=== PATIENT | female | born 1995 | race Caucasian/White ===

== ENCOUNTER 2019-08-19 10:45 | Emergency (ER) | payer MEDICAID, OTHER ==
--- NOTE | 2019-08-19 10:48 | ERPHSYRPT ---
- History of Present Illness Time Seen by Provider: 08/19/19 10:48 Historian: patient, family Exam Limitations: no limitations Physician History: This is a 23-year-old white female who presents with a 2-day history of right suprapubic pain that is described as intermittent ache and sharp stabbing pain. She has no associated nausea vomiting or diarrhea. She states that she has felt a little sleepy. She states that she has at times felt flushed and feels as though she is having hot flashes. She is never had anything like this before. This week is when she is due for her menstrual period to start. She has had no abdominal surgeries. She has had no vaginal discharge. She denies flank pain. Timing/Duration: day(s) Activities at Onset: none Quality: aching, sharpness Abdominal Pain Onset Location: suprapubic (Right side) Pain Radiation: no radiation Severity of Pain-Max: moderate Severity of Pain-Current: moderate Modifying Factors: Improves With: nothing Associated Symptoms: denies symptoms Previous symptoms: no prior history Allergies/Adverse Reactions: Penicillins Allergy (Verified 06/22/15 15:35) Hx Influenza Vaccination/Date Given: Yes Hx Pneumococcal Vaccination/Date Given: No Travel Risk - International Travel Have you traveled outside of the country in past 3 weeks: No - Coronavirus Screening Are you exhibiting any of the following symptoms?: No Close contact with a COVID-19 positive Pt in past 14-21 Days: No - Review of Systems Constitutional: No Symptoms Eyes: No Symptoms Ears, Nose, & Throat: No Symptoms Respiratory: No Symptoms Cardiac: No Symptoms Abdominal/Gastrointestinal: Abdominal Pain (Right suprapubic), No Nausea, No Vomiting, No Diarrhea Genitourinary Symptoms: No Symptoms Musculoskeletal: No Symptoms Skin: No Symptoms Neurological: No Symptoms Psychological: No Symptoms Endocrine: No Symptoms Hematologic/Lymphatic: No Symptoms Immunological/Allergic: No Symptoms All Other Systems: Reviewed and Negative - Past Medical History Pertinent Past Medical History: No Neurological History: No Pertinent History Cardiac History: No Pertinent History Respiratory History: Asthma Endocrine Medical History: No Pertinent History Musculoskeletal History: No Pertinent History GI Medical History: No Pertinent History History: No Pertinent History Psycho-Social History: No Pertinent History Female Reproductive Disorders: No Pertinent History - Past Surgical History Past Surgical History: No Neuro Surgical History: No Pertinent History Cardiac: No Pertinent History Respiratory: No Pertinent History Gastrointestinal: No Pertinent History Genitourinary: No Pertinent History Musculoskeletal: No Pertinent History Female Surgical History: No Pertinent History - Social History Smoking Status: Never smoker Exposure to second hand smoke: Yes Drug Use: none Patient Lives Alone: No - Nursing Vital Signs Nursing Vital Signs: Initial Vital Signs Temperature 98.0 F 08/19/19 10:52 Pulse Rate 112 H 08/19/19 10:52 Respiratory Rate 20 08/19/19 10:52 Blood Pressure 161/98 08/19/19 10:52 O2 Sat by Pulse Oximetry 99 08/19/19 10:52 Pain Scale Pain Intensity 2 - Physical Exam General Appearance: no apparent distress, alert, anxiety Eye Exam: PERRL/EOMI, eyes nml inspection Ears, Nose, Throat Exam: normal ENT inspection, moist mucous membranes Neck Exam: normal inspection, non-tender, supple, full range of motion Respiratory Exam: normal breath sounds, lungs clear, airway intact, No chest tenderness, No respiratory distress Cardiovascular Exam: normal heart sounds, normal peripheral pulses, tachycardia Gastrointestinal/Abdomen Exam: soft, normal bowel sounds, tenderness, guarding (Right suprapubic) Pelvic Exam: not done Rectal Exam: not done Back Exam: normal inspection, normal range of motion, No CVA tenderness Extremity Exam: normal inspection, normal range of motion, pelvis stable Neurologic Exam: alert, oriented x 3, cooperative, 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, nml cerebellar function, nml station & gait Skin Exam: normal color, warm, dry Lymphatic Exam: No adenopathy SpO2 Interpretation: normal O2 Delivery: Room Air - Course Nursing assessment & vital signs reviewed: Yes Ordered Tests: Active Orders 24 hr Category Date Time Status IV Insertion STAT Care 08/19/19 11:08 Active ABDOMEN AND PELVIS W/0 CONTRAS [CT] Stat Exams 08/19/19 11:09 Completed PELVIS TRANS VAGINAL [US] Stat Exams 08/19/19 12:24 Completed AMYLASE Stat Lab 08/19/19 11:05 Completed CBC W DIFF Stat Lab 08/19/19 11:05 Completed CMP Stat Lab 08/19/19 11:05 Completed CULTURE,URINE Stat Lab 08/19/19 12:13 Received HCG QUALITATIVE,SERUM Stat Lab 08/19/19 11:05 Completed LIPASE Stat Lab 08/19/19 11:05 Completed Lactic Acid Stat Lab 08/19/19 11:24 Completed Manual Differential NC Stat Lab 08/19/19 11:05 Completed UA W/RFX UR CULTURE Stat Lab 08/19/19 12:13 Completed Medication Summary Discontinued Medications Generic Name Dose Route Start Last Admin Trade Name Nicolas PRN Reason Stop Dose Admin Ketorolac Tromethamine 30 mg 08/19/19 11:08 08/19/19 11:25 Toradol 30 Mg Injection IV 08/19/19 11:09 30 mg STAT ONE Administration Ketorolac Tromethamine Confirm 08/19/19 11:23 Toradol 30 Mg Injection Administered 08/19/19 11:24 Dose 30 mg .ROUTE .STK-MED ONE Levofloxacin 500 mg 08/19/19 13:41 08/19/19 13:46 Levofloxacin 250mg Tablet PO 08/19/19 13:42 500 mg STAT ONE Administration Levofloxacin Confirm 08/19/19 13:43 Levofloxacin 500 Mg Tablet Administered 08/19/19 13:44 Dose 500 mg .ROUTE .STK-MED ONE Ondansetron HCl 4 mg 08/19/19 11:08 08/19/19 11:25 Zofran 4 Mg/2 Ml Vial IV 08/19/19 11:09 4 mg STAT ONE Administration Ondansetron HCl Confirm 08/19/19 11:23 Zofran 4 Mg/2 Ml Vial Administered 08/19/19 11:24 Dose 4 mg .ROUTE .STK-MED ONE Lab/Rad Data: Laboratory Result Diagrams 08/19/19 11:05 08/19/19 11:05 Laboratory Results 08/19/19 08/19/19 08/19/19 Range/Units 12:13 11:24 11:05 WBC (4.0-10.5) K/mm3 RBC (4.1-5.4) M/mm3 Hgb (12.0-16.0) gm/dl Hct (35-47) % MCV (78-100) fl MCH (26-32) pg MCHC (32-36) g/dl RDW (11.5-14.0) % Plt Count (150-450) K/mm3 MPV (7.5-11.0) fl Sodium (137-145) mmol/L Potassium (3.5-5.1) mmol/L Chloride (98-107) mmol/L Carbon Dioxide (22-30) mmol/L Anion Gap (5-15) MEQ/L BUN (7-17) mg/dL Creatinine (0.52-1.04) mg/dL Estimated GFR ML/MIN Glucose (74-106) mg/dL Lactic Acid 1.1 (0.4-2.0) Calcium (8.4-10.2) mg/dL Total Bilirubin (0.2-1.3) mg/dL AST (14-36) U/L ALT (0-35) U/L Alkaline Phosphatase (38-126) U/L Serum Total Protein (6.3-8.2) g/dL Albumin (3.5-5.0) g/dL Amylase (30-110) U/L Lipase (23-300) U/L Serum , Qual NEGATIVE (Negative) Urine Color YELLOW (YELLOW) Urine Appearance SLIGHTLY CLOUDY (CLEAR) Urine pH 6.0 (5-6) Ur Specific [place] 1.015 (1.005-1.025) Urine Protein NEGATIVE (Negative) Urine Ketones MODERATE (NEGATIVE) Urine Blood MODERATE (0-5) Tomy/ul Urine Nitrite NEGATIVE (NEGATIVE) Urine Bilirubin NEGATIVE (NEGATIVE) Urine Urobilinogen NEGATIVE (0-1) mg/dL Ur Leukocyte Esterase LARGE (NEGATIVE) Urine WBC (Auto) 26-50 (0-5) /HPF Urine RBC (Auto) 6-10 (0-2) /HPF U Epithel Cells (Auto) FEW (FEW) /HPF Urine Bacteria (Auto) FEW (NEGATIVE) /HPF Urine Mucus (Auto) SLIGHT (NEGATIVE) /HPF Urine Culture Reflexed YES (NO) Urine Glucose NEGATIVE (NEGATIVE) mg/dL 08/19/19 08/19/19 Range/Units 11:05 11:05 WBC 12.6 H (4.0-10.5) K/mm3 RBC 4.69 (4.1-5.4) M/mm3 Hgb 12.3 (12.0-16.0) gm/dl Hct 37.8 (35-47) % MCV 80.6 (78-100) fl MCH 26.2 (26-32) pg MCHC 32.5 (32-36) g/dl RDW 13.9 (11.5-14.0) % Plt Count 406 (150-450) K/mm3 MPV 8.8 (7.5-11.0) fl Sodium 139 (137-145) mmol/L Potassium 3.6 (3.5-5.1) mmol/L Chloride 104 (98-107) mmol/L Carbon Dioxide 26 (22-30) mmol/L Anion Gap 13.2 (5-15) MEQ/L BUN 11 (7-17) mg/dL Creatinine 0.57 (0.52-1.04) mg/dL Estimated GFR > 60.0 ML/MIN Glucose 131 H (74-106) mg/dL Lactic Acid (0.4-2.0) Calcium 9.4 (8.4-10.2) mg/dL Total Bilirubin 0.60 (0.2-1.3) mg/dL AST 15 (14-36) U/L ALT 13 (0-35) U/L Alkaline Phosphatase 74 (38-126) U/L Serum Total Protein 8.6 H (6.3-8.2) g/dL Albumin 4.1 (3.5-5.0) g/dL Amylase 32 (30-110) U/L Lipase 24 (23-300) U/L Serum , Qual (Negative) Urine Color (YELLOW) Urine Appearance (CLEAR) Urine pH (5-6) Ur Specific [place] (1.005-1.025) Urine Protein (Negative) Urine Ketones (NEGATIVE) Urine Blood (0-5) Tomy/ul Urine Nitrite (NEGATIVE) Urine Bilirubin (NEGATIVE) Urine Urobilinogen (0-1) mg/dL Ur Leukocyte Esterase (NEGATIVE) Urine WBC (Auto) (0-5) /HPF Urine RBC (Auto) (0-2) /HPF U Epithel Cells (Auto) (FEW) /HPF Urine Bacteria (Auto) (NEGATIVE) /HPF Urine Mucus (Auto) (NEGATIVE) /HPF Urine Culture Reflexed (NO) Urine Glucose (NEGATIVE) mg/dL - Progress Progress: improved, pain not gone completely Progress Note: 08/19/19 12:21 CAT scan of the abdomen and pelvis shows a right adnexal 4 to 5 cm hypodense mass 08/19/19 13:47 Ultrasound pelvic/transvaginal reveals a large right ovarian cystic mass with presumed adnexal fluid leakage. Counseled pt/family regarding: lab results, diagnosis, need for follow-up, rad results - Departure Departure Disposition: Home Clinical Impression: Urinary tract infection, Ovarian cystic mass Condition: Stable Critical Care Time: No Referrals: BLU CAGE NP [Primary Care Provider] - Additional Instructions: Add ibuprofen 600 mg orally every 8 hours with food as needed for pain. Follow- up with a indigo mixer for further management. Prescriptions: Hydrocodone/APAP 5-325 Tab^^^ [[place] 5-325 Tablet^^^] 1 tab PO Q8HPRN PRN #8 tablet MDD 3 PRN Reason: Pain Ciprofloxacin [Cipro 500 MG] 500 mg PO BID #14 tablet
[2019-08-19] MEDS ORDERED: Zofran 4 MG/2 ML VIAL IV ONE (11:08)
[2019-08-19] MEDS ORDERED: TORAdol 30 mg Injection IV ONE (11:08)
[2019-08-19] MEDS ORDERED: Zofran 4 MG/2 ML VIAL ONE (11:23)
[2019-08-19] MEDS ORDERED: TORAdol 30 mg Injection ONE (11:23)
[2019-08-19 11:28] LABS: Hematocrit 37.8 % (35-47); Hemoglobin 12.3 gm/dl (12.0-16.0); Mean Cell Volume 80.6 fl (78-100); Mean Corpuscular Hemoglobin 26.2 pg (26-32); Mean Corpuscular Hgb Concent. 32.5 g/dl (32-36); Mean Platelet Volume 8.8 fl (7.5-11.0); Platelet Count 406 K/mm3 (150-450); Red Blood Count 4.69 M/mm3 (4.1-5.4); Red Cell Distribution Width 13.9 % (11.5-14.0); White Blood Count 12.6 K/mm3 (4.0-10.5)
[2019-08-19 11:33] LABS: ALBUMIN 4.1 g/dL (3.5-5.0); ALKALINE PHOSPHATASE 74 U/L (38-126); AMYLASE 32 U/L (30-110); ANION GAP 13.2 MEQ/L (5-15); BLOOD UREA NITROGEN 11 mg/dL (7-17); CHLORIDE 104 mmol/L (98-107); Calcium 9.4 mg/dL (8.4-10.2); Carbon Dioxide 26 mmol/L (22-30); Creatinine 1 0.57 mg/dL (0.52-1.04); Glucose 131 mg/dL (74-106); LIPASE 24 U/L (23-300); Potassium 3.6 mmol/L (3.5-5.1); SGOT/AST 15 U/L (14-36); SGPT/ALT 13 U/L (0-35); SODIUM 139 mmol/L (137-145); Total Protein 8.6 g/dL (6.3-8.2)
--- NOTE | 2019-08-19 12:10 | XRAY ---
Indication: Pelvic pain. Multiple contiguous axial images obtained through the abdomen and pelvis without contrast as ordered. Comparison: None Lung bases demonstrate minimal fibrosis/scarring. Posterior right lower lobe demonstrates 5 mm noncalcified nodule. Heart is not enlarged. Noncontrasted stomach and bowel loops appear nonobstructed. Normal air-filled appendix. Pelvis demonstrates moderate free fluid with minimal stranding. Query 4 x 5 cm right adnexa hypodense mass. No free air. Remaining liver, gallbladder, pancreas, spleen, adrenal glands, kidneys, ureters, bladder, uterus, and aorta appear unremarkable for noncontrast exam. Osseous structures intact. No ventral or inguinal hernias. Impression: 1. Moderate pelvic free fluid of uncertain etiology. Query 4 x 5 cm right adnexal hypodense mass. Pelvic sonogram may yield further information. 2. 5 mm right lower lobe noncalcified micronodule. Finding possibly granulomatous in this demographic.
[2019-08-19 12:28] LABS: Appearance SLIGHTLY CLOUDY (CLEAR); Bacteria FEW /HPF (NEGATIVE); Bilirubin NEGATIVE (NEGATIVE); Blood MODERATE Ery/ul (0-5); Glucose NEGATIVE (NEGATIVE); Ketones MODERATE (NEGATIVE); Leukocyte Esterase LARGE (NEGATIVE); Mucus SLIGHT /HPF (NEGATIVE); Nitrite NEGATIVE (NEGATIVE); Protein,Urine Dip NEGATIVE (Negative); Specific Gravity 1.015 (1.005-1.025); Urobilinogen NEGATIVE mg/dL (0-1); WBC 26-50 /HPF (0-5)
[2019-08-19 12:29] LABS: Epithelial Cells FEW /HPF (FEW)
[2019-08-19] MEDS ORDERED: Levofloxacin 250MG Tablet PO ONE (13:41)
[2019-08-19] MEDS ORDERED: Levofloxacin 500 MG Tablet ONE (13:43)
--- NOTE | 2019-08-19 13:44 | XRAY ---
Indication: Right adnexa mass on same-day CT abdomen/pelvis. Pelvic pain. Two-dimensional transvaginal pelvic sonogram performed. Comparison: None Uterus anteverted measuring 6.8 x 3.4 x 3.9 cm. No focal solid/cystic uterine mass. Endometrial stripe measures 7.4 mm. No endometrial cavity mass or fluid collection. Right ovary measures 5.6 x 3.8 x 5.2 cm and demonstrates a 3.5 x 3.1 x 4.6 cm cystic mass with low-level internal echoes possibly hemorrhagic cyst versus chocolate cyst/endometrioma. Also moderate right adnexa free fluid presumed from rupture/leaking cyst. Left ovary measures 3.9 x 1.88 x 2.9 cm with normal follicular cysts. Normal color perfusion bilaterally. Impression: 1. Large right ovary cystic mass with low-level internal echoes as detailed corresponding to the same day CT abnormality. Rule out hemorrhagic cyst versus chocolate cyst/endometrioma. 2. Right adnexa free fluid suggesting rupture/leaking cyst. 3. Remaining transvaginal pelvic sonogram is negative.
[2019-08-19] MEDS ORDERED: Levofloxacin 250MG Tablet ONE (13:45)
[2019-08-19 14:28] VITALS: BP 120/77; PULSE 77; O2SAT 100
[2019-08-19 15:21] LABS: Eosinophil 1 % (0.00-3.0); Lymphocytes 20 % (24-44); Monocyte 1 % (0.0-12.0); Neutrophils 78 % (36.0-66.0); Platelet Estimate NORMAL (NORMAL); Total Cells Counted 100
== END 2019-08-19 14:29 | disposition home or self-care (01) ==
LOC: ED 10:45
DX: N39.0 Urinary tract infection, site not specified (principal); N83.209 Unspecified ovarian cyst, unspecified side
CPT/HCPCS: 36000; 36415; 74176; 76830; 80053; 81001; 81025; 82150; 83605; 83690; 85025; 87086; 96374; 96375; 99284; J1885; J2405; A9270-GY